=== PATIENT | male | born 1955 | race Caucasian/White ===

== ENCOUNTER 2016-04-05 17:17 | Emergency (ER) | payer OTHER ==
--- NOTE | 2016-04-05 20:52 | DIAGNOSTIC IMAGING REPORT ---
PROCEDURE: XR LUMBAR SPINE 2 OR 3 VIEWS INDICATION: TRAUMA/INJURY, initial encounter TECHNIQUE: Three views. COMPARISON: None. FINDINGS: Minor dextroconvex curvature of the spine. Moderate L1 compression fracture which appears chronic. Grade 1 L4-5 anterolisthesis., L4-5 end L5-S1 disc space narrowing. Soft tissues are unremarkable. IMPRESSION: 1. Moderate L1 compression fracture which appears chronic 2. Grade 1 L4-5 anterolisthesis 3. Mild degenerative changes with mild L3-4, L4-5 and L5-S1 disc space narrowing
--- NOTE | 2016-04-05 22:10 | ED CLINICAL REPORT ---
Clinical Report - Physicians/Mid Levels [facility] [address] [place] [address] 04/05/2016 17:17 Patient: CARLOS PRAJAPATI Time Seen: 19:57; initial patient contact, initial documentation, patient care assumed. Arrived- By private vehicle. Historian- patient. HISTORY OF PRESENT ILLNESS Chief Complaint: BACK PAIN and CHRONIC BACK PAIN. It is described as being severe. It is described as being in the area of the left mid lumbar spine, mid lumbar spine, left lower lumbar spine, lower lumbar spine and right mid lumbar spine. It is described as being in the area of the right lower lumbar spine. The quality is noted to be "pain" and similar to prior episodes. No radiation. Modifying factors- worsened by rotation of the body to the right or left, bending over or lifting. Relieved by taking prescription medications. Onset was just prior to arrival and it is still present. No bladder dysfunction, bowel dysfunction, sensory loss or motor loss. Additional history - missed today's appt for pain management and now almost out of pain meds, states he wants pain meds for his back. Patient notes the possibility of an injury but denies injury to the head. Mechanism of injury- he fell while walking. (slipped and fell). No other injury. Similar symptoms previously: Chronically, milder. Recent medical care: The patient was seen recently at another facility in the emergency department. ( went to [facility] on 03/31 for same thing, fall, L knee pain and back pain, did xrays of knee, but none of back). REVIEW OF SYSTEMS No fever, difficulty with urination, urinary frequency, hematuria or difficulty breathing. No chest pain, abdominal pain, vomiting or diarrhea. All systems otherwise negative, except as recorded above. PAST HISTORY See nurses notes. PROBLEMS: Substance Abuse. Lower Extremity Pain. Infections. Diabetes Mellitus. Contusion. MRSA Infection. Ruptured Achilles. Diarrhea. Thrombocytopenia. --19:54 Eliceo Hudson R.N. SOCIAL HISTORY Never smoker. No alcohol use or drug use. No recent travel. Is a local resident. FAMILY HISTORY Negative. ADDITIONAL NOTES The nursing notes have been reviewed with agreement regarding the chief complaint, HPI, ROS, PMH and patient medications and allergies. PHYSICAL EXAM Vital Signs: 04/05/2016 17:31 BP: 129/88. HR: 81. RR: 18. O2 saturation: 98%. Temp: 98.6 F. Pain level now: 01/06. Have been reviewed as normal and appear to be correct. Appearance: Alert. No acute distress. Neck: Normal inspection. Neck nontender. Painless ROM. CVS: Heart sounds normal. Pulses normal. Respiratory: No respiratory distress. Breath sounds normal. Abdomen: No visible injury. Soft and nontender. Back: Abnormal inspection. Back tenderness present. Vertebral point tenderness over the mid and lower lumbar spine. Soft tissue tenderness in the left mid and lower and mid and lower central lumbar area. No painless ROM. Mildly limited ROM in the back- in the lumbar spine: decreased flexion, extension, right lateral bending, left lateral bending and rotation to the right and left. No muscle spasm in the back or CVA tenderness. Skin: Skin warm and dry. Normal skin color. No rash. Normal skin turgor. Extremities: Extremities exhibit normal ROM. Extremities nontender. Neuro: Oriented X 3. Mood/affect normal. No motor deficit. No sensory deficit. LABS, X-RAYS, AND EKG X-Rays: LS spine series. LS-Spine X-rays: (IMPRESSION: 1. Moderate L1 compression fracture which appears chronic 2. Grade 1 L4-5 anterolisthesis 3. Mild degenerative changes with mild L3-4, L4-5 and L5-S1 disc space narrowing Electronically Final signed by:Osbaldo Crum MD 04/05/2016 8:52:16 PM). The X-rays were interpreted by the radiologist and contemporaneously by me. PROGRESS AND PROCEDURES Course of Care: 2109. nurse went to give Toradol, and now pt stating he can't take it 21:24 04/05/16. pt has [facility] for pain management, frequent er visits, #30, see report for full details 2144. xrays results and tx plan discussed, pt insisting I give him pain meds, and stated that when he went to er at other facility they have him oxycodone, and why couldn't he have that here, concerns discussed about chronic pain conditions and narcs, pt then telling me pain meds for his knee don't count towards his back pt aware that he will not get any narcs or controlled substances, states takes motrin without issues and will take the toradol, agreed to give benadryl with it, states he had it approx x18 years ago, and it made him itch, no rash. Patient/family counseled. 22:09. Differential Diagnosis: I considered Musculo-skeletal strain, contusion, retroperitoneal hematoma, disk protrusion, vertebral fracture, facet syndrome, sacroiliac joint strain, sciatica, osteoarthritis, lumbar spondylosis, spinal stenosis, ankylosing spondylitis and sacroiliac joint inflammation as a possible cause of back pain in this patient. This is a partial list of diagnoses considered. (substance abuse, muscle strain). Above considerations are based on history, physical exam and X-Ray data. Differential diagnosis was discussed with patient. Disposition: Discharged home in good and improved condition (22:10). Condition: good and stable. CLINICAL IMPRESSION Chronic nontraumatic lumbar back pain associated with degenerative disc disease. INSTRUCTIONS Warnings: GENERAL WARNINGS: Return or contact your physician immediately if your condition worsens or changes unexpectedly, if not improving as expected, or if other problems arise. SPECIFICALLY, return if you develop numbness or incontinence of urine (loss of bladder control). Prescription Medications: Naproxen 500 mg tablets: take 1 orally every 12 hours as needed for pain. Dispense twenty (20). No refills. Medrol Dosepak: take according to package directions. Dispense one (1) dosepak. No refills. Substitution is permissible. Follow-up: Follow up with your doctor in about three days even if well. Call for an appointment. Summary of care provided to patient. Understanding of the discharge instructions verbalized by patient. (Electronically signed by Tahmina Tan A.R.N.P. 04/06/2016 0:11)
--- NOTE | 2016-04-05 22:11 | ED NURSING NOTES ---
Clinical Report - Nurses [facility] [address] [place] [address] 04/05/2016 17:17 Patient: CARLOS PRAJAPATI TRIAGE Triage time 17:31. Chief Complaint: BACK PAIN and (low back area, this is a re-injury). Alert. --17:34 Piedad Dixon R.N. 17:31 04/05/16. BP: 129/88. HR: 81. RR: 18. O2 saturation: 98%. Temp: 98.6 F. Pain level now: 01/06. --17:34 Piedad Dixon R.N. Acuity: LEVEL 3. Chief Complaint: BACK PAIN. ( Pt missed his pain clinic for his pain meds.). --19:54 Eliceo Hudson R.N. Weight: 97.5 kg stated. Height/Length: 70 inches Per Patient. BMI: 30.8. --17:33 Piedad Dixon R.N. Medications MetFORMIN HCl Oral 850 mg, 2x a day. OxyCODONE HCl Oral 10 mg, every 4 hours . Sovaldi Oral (Tablet 400 mg) 1 tablet, daily . --19:53 Eliceo Hudson R.N. Medication/allergy information source: the patient. --19:54 Eliceo Hudson R.N. Allergies Penicillin.(hives) Toradol.(itching) --19:53 Eliceo Hudson R.N. History Arrived by private vehicle, and accompanied by (s/o). Primary physician (Dr. Drew). Historian not patient. This started today. History of recent trauma- (knee went out, pt fell down and now has back pain (again)). --17:34 Piedad Dixon R.N. ( Pt came in with back and right knee pain. The back has been hurting for over 3 months. Pt fell on thursday on ice. Pt ambulates with a cane. The back pain is radiating into the neck.). He has had trouble walking (due to the pain). Treatment [employer] SUPERINTENDENT: Took Tylenol. PAST MEDICAL HX: ( Pt has a hx of sub abuse but denies any in triage.). SOCIAL HX: Never smoker. No alcohol use or drug use. --19:54 Eliceo Hudson R.N. PROBLEMS: Substance Abuse. Lower Extremity Pain. Infections. Diabetes Mellitus. Contusion. MRSA Infection. Ruptured Achilles. Diarrhea. Thrombocytopenia. --19:54 Eliceo Hudson R.N. Interventions ID band on patient. To treatment room. --19:54 Eliceo Hudson R.N. PHYSICAL ASSESSMENT GENERAL / NEURO / PSYCH: Alert. Oriented X 4. Appears in no acute distress. RESPIRATORY: Respirations not labored. Chest nontender. Breath sounds within normal limits. CVS: Normal heart rate and rhythm. Capillary refill less than 2 seconds. GI / : Abdomen soft and nontender. Bowel sounds within normal limits. EXTREMITIES: Limited ROM present in the right knee and left knee. Sensation intact in extremities. BACK: ( Limited rom in the right knee due to pain. walks with a cane.). Normal inspection of the neck and back. Limited ROM of the neck. No neck or back tenderness. --19:55 Eliceo Hudson R.N. NURSING PROGRESS NOTES 19:51 04/05/16. BP: 131/82. HR: 72. RR: 18. O2 saturation: 100%. Pain level now 10/10. --19:52 Eliceo Hudson R.N. The plan of care for this patient has been created. Head of bed elevated. Two patient identifiers checked. Call light placed in reach. Side rails up x 1. Bed placed in lowest position. Brakes of chair on. ( Pain is 12/10 with the back pain. Pt is not in obvious signs of distress, while at rest.). --19:52 Eliceo Hudson R.N. Patient transported to radiology. (20:32). --20:32 Eliceo Hudson R.N. Patient returned from radiology. (20:37). --20:37 Eliceo Hudson R.N. 22:04/05/2016 Toradol (Ketorolac Tromethamine) IM 60 mg given. Given in the right gluteus lynda. Allergies verified and confirmed 5 rights. --22:10 Eliceo Hudson R.N. 22:10 04/05/2016 Benadryl (DiphenhydrAMINE HCl) IM 50 mg given. Given in the right gluteus lynda. Allergies verified, confirmed 5 rights and sedative warning given to the patient. --22:10 Eliceo Hudson R.N. 22:10 04/05/16. BP: 125/78. HR: 68. RR: 15. O2 saturation: 100%. Pain level now 01/06. --22:11 Eliceo Hudson R.N. DISPOSITION / DISCHARGE Departure time: 2244. Condition at departure: unchanged. No learning barriers present. Discharge instructions provided and reviewed with the patient. Patient verbalized understanding. Written instructions provided in Portuguese. The patient was discharged by the physician. He was discharged home. He left the Emergency Department ambulatory, via private vehicle and (cane). Patient driving. --22:44 Eliceo Hudson R.N. 22:41 04/05/16. BP: 129/75. HR: 72. RR: 14. O2 saturation: 100%. Pain level now 01/06. --22:44 Eliceo Hudson R.N. Locked/Released at 04/05/2016 22:45 by Eliceo Hudson R.N.
--- NOTE | 2016-04-05 22:11 | ED ORDER SUMMARY ---
..... Patient: CARLOS PRAJAPATI OrderSheet [facility] VisitID: [id number] [address] [place] [address] 61y, M Registration Date/Time: 04/05/2016 ORDER SHEET Weight: 97.5 kg (stated) Allergies: Penicillin, Toradol GENERAL ORDERS: Lumbar Spine 2 or 3V Urgent (20:15 04/05/2016 HBivens A.R.N.P.) (20:32 TLewis R.N.) MEDICATION ORDERS: Toradol IM 60 mg (NOW) (22:07 04/05/2016 HBivens A.R.N.P.) (22:10 TLewis R.N.) Benadryl IM 50 mg (NOW) (22:04/05/2016 HBivens A.R.N.P.) (22:10 TLewis R.N.) IV FLUIDS: ORDER SHEET NOTES: [Electronically signed by Eliceo Hudson R.N. (22:45 04/05/2016)] [Electronically signed by Tahmina TanR.N.P. (00:11 04/06/2016)] [Electronically locked/signed by Eliceo Hudson R.N. (22:45 04/05/2016)]
--- NOTE | 2016-04-05 22:11 | ED ORDER SUMMARY ---
..... Patient: CARLOS PRAJAPATI OrderSheet [facility] VisitID: [id number] [address] [place] [address] 61y, M Registration Date/Time: 04/05/2016 ORDER SHEET Weight: 97.5 kg (stated) Allergies: Penicillin, Toradol GENERAL ORDERS: Lumbar Spine 2 or 3V Urgent (20:15 04/05/2016 HBivens A.R.N.P.) (20:32 TLewis R.N.) MEDICATION ORDERS: Toradol IM 60 mg (NOW) (22:07 04/05/2016 HBivens A.R.N.P.) (22:10 TLewis R.N.) Benadryl IM 50 mg (NOW) (22:04/05/2016 HBivens A.R.N.P.) (22:10 TLewis R.N.) IV FLUIDS: ORDER SHEET NOTES: [Electronically signed by Eliceo Hudson R.N. (22:45 04/05/2016)] [Electronically signed by Tahmina TanR.N.P. (00:11 04/06/2016)] [Electronically locked/signed by Eliceo Hudson R.N. (22:45 04/05/2016)]
--- NOTE | 2016-04-06 00:11 | ED MAR SUMMARY ---
..... Medication Administration Record [facility] [address] [place] [address] Patient: CARLOS PRAJAPATI Visit ID: [id number] 61y, M Weight: 97.5 kg Height/Length: 70 in BMI: 30.8 ALLERGIES: Penicillin, Toradol Given 22:04/05/2016 Eliceo Hudson R.N. Medication Administered: TORADOL [IM] (KETOROLAC TROMETHAMINE), Dose: 60 mg IM. Medication Ordered: Toradol IM 60 mg (NOW). Given 22:04/05/2016 Eliceo Hudson R.N. Medication Administered: BENADRYL [IM] (DIPHENHYDRAMINE HCL), Dose: 50 mg IM. Medication Ordered: Benadryl IM 50 mg (NOW).
--- NOTE | 2016-04-06 00:11 | ED DISCHARGE INSTRUCTIONS ---
Patient: CARLOS PRAJAPATI General Instructions [facility] VisitID: [id number] [place] [address] 61y, M Registration Date/Time: 04/05/2016 Chronic nontraumatic lumbar back pain associated with degenerative disc disease. INSTRUCTIONS Warnings: GENERAL WARNINGS: Return or contact your physician immediately if your condition worsens or changes unexpectedly, if not improving as expected, or if other problems arise. SPECIFICALLY, return if you develop numbness or incontinence of urine (loss of bladder control). Prescription Medications: Naproxen 500 mg tablets: take 1 orally every 12 hours as needed for pain. Dispense twenty (20). No refills. Medrol Dosepak: take according to package directions. Dispense one (1) dosepak. No refills. Substitution is permissible. Follow-up: Follow up with your doctor in about three days even if well. Call for an appointment. Summary of care provided to patient. Understanding of the discharge instructions verbalized by patient. ADDITIONAL INFORMATION Back Pain [Acute Or Chronic] Back pain is usually caused by an injury to the muscles or ligaments of the spine. Sometimes the disks that separate each bone in the spine may bulge and cause pain by pressing on a nearby nerve. Back pain may also appear after a sudden twisting/bending force (such as in a car accident), after a simple awkward movement, or lifting something heavy with poor body positioning. In either case, muscle spasm is often present and adds to the pain. Acute back pain usually gets better in one to two weeks. Back pain related to disk disease, arthritis in the spinal joints or spinal stenosis (narrowing of the spinal canal) can become chronic and last for months or years. Unless you had a physical injury (for example, a car accident or fall) X-rays are usually not ordered for the initial evaluation of back pain. If pain continues and does not respond to medical treatment, x-rays and other tests may be performed at a later time. Home Care: You may need to stay in bed the first few days. But, as soon as possible, begin sitting or walking to avoid problems with prolonged bed rest (muscle weakness, worsening back stiffness and pain, blood clots in the legs). When in bed, try to find a position of comfort. A firm mattress is best. Try lying flat on your back with pillows under your knees. You can also try lying on your side with your knees bent up towards your chest and a pillow between your knees. Avoid prolonged sitting. This puts more stress on the lower back than standing or walking. During the first two days after injury, apply an ICE PACK to the painful area for 20 minutes every 2-4 hours. This will reduce swelling and pain. HEAT (hot shower, hot bath or heating pad) works well for muscle spasm. You can start with ice, then switch to heat after two days. Some patients feel best alternating ice and heat treatments. Use the one method that feels the best to you. You may use acetaminophen (Tylenol) or ibuprofen (Motrin, Advil) to control pain, unless another pain medicine was prescribed. [NOTE: If you have chronic liver or kidney disease or ever had a stomach ulcer or GI bleeding, talk with your doctor before using these medicines.] Be aware of safe lifting methods and do not lift anything over 15 pounds until all the pain is gone. Follow Up with your doctor or this facility if your symptoms do not start to improve after one week. Physical therapy may be needed. [NOTE: If X-rays were taken, they will be reviewed by a radiologist. You will be notified of any new findings that may affect your care.] Get Prompt Medical Attention if any of the following occur: Pain becomes worse or spreads to your legs Weakness or numbness in one or both legs Loss of bowel or bladder control Numbness in the groin or genital area Degenerative Disk Disease Spinal disks are gel-filled cushions between the bones of the spine (vertebrae). The disks act like shock absorbers. Over time, the disks may break down. This disorder is called degenerative disk disease (DDD). DDD can affect the neck or back. It is one of the most common causes of low back pain. It is the leading cause of disability in people under age 45 in the [place]. The pain usually remains localized to the lower back or neck. Muscle spasm is often present and adds to the pain. Disk degeneration is a natural part of aging, although it does not cause pain in most persons. It may also occur as a result of repeated minor injuries due to daily activities, sports, or accidents. It may lead to osteoarthritis of the spine. Back pain related to disk disease may come and go or become chronic and last for months or years. If the disk bulges or ruptures (also called slipped disk or herniated disk), it can put pressure on a nearby spinal nerve and cause neck or back pain that spreads down one arm or leg. X-rays or MRI (magnetic resonance imaging) scan may aid in the diagnosis. For acute pain, treatment consists of anti-inflammatory drugs, muscle relaxants, rest, ice, or heat. Narcotic pain medicines may be needed for short-term treatment of sudden worsening of pain. Due to their addictive potential, narcotics are not advised for long-term pain management. Other types of medicines are preferred. Surgery is usually not used to treat this condition unless there is a complication (such as nerve root compression). Home Care: FOR NECK PAIN: Use a comfortable pillow that supports the head and keeps the spine in a neutral position. The head should not be tilted forward or backward. FOR BACK PAIN: Avoid prolonged sitting. This puts more stress on the lower back than standing or walking. Establishing a regular exercise program to strengthen the supporting muscles of the spine will make it easier to live with DDD. During the first2 days after a flare-up of your pain, apply anice pack to the painful area for 20 minutes every 2-4 hours. This will reduce swelling and pain.Heat (hot shower, hot bath, or heating pad) works well for muscle spasm. You can start with ice, then switch to heat after2 days. Some patients feel best alternating ice and heat treatments. Use the method that feelsbest to you. You may use acetaminophen (Tylenol) or ibuprofen (Motrin, Advil) to control pain, unless another pain medicine was prescribed. [NOTE: If you have chronic liver or kidney disease or ever had a stomach ulcer or GI bleeding, talk with your doctor before using these medicines.] Follow Up with your physician, or as directed by our staff. [NOTE: If x-rays, a CT scan or an MRI scan were taken, they will be reviewed by a radiologist. You will be notified of any new findings that may affect your care.] Return Promptly or contact your doctor if any of the following occur: Increasing back pain New weakness, numbness, or pain in one or both arms or legs Foot drop (foot drags when you walk) Loss of bowel or bladder control Numbness or tingling in the buttock or groin area Unexplained fever over 100.4F (38.0C) Naproxen Sodium Oral tablet What is this medicine? NAPROXEN (na PROX en) is a non-steroidal anti-inflammatory drug (NSAID). It is used to reduce swelling and to treat pain. This medicine may be used for dental pain, headache, or painful monthly periods. It is also used for painful joint and muscular problems such as arthritis, tendinitis, bursitis, and gout. How should I use this medicine? Take this medicine by mouth with a glass of water. Follow the directions on the prescription label. Take it with food if your stomach gets upset. Try to not lie down for at least 10 minutes after you take it. Take your medicine at regular intervals. Do not take your medicine more often than directed. Long-term, continuous use may increase the risk of heart attack or stroke. A special MedGuide will be given to you by the pharmacist with each prescription and refill. Be sure to read this information carefully each time. Talk to your backend tester regarding the use of this medicine in children. Special care may be needed. What side effects may I notice from receiving this medicine? Side effects that you should report to your doctor or health attending ambulatory care as soon as possible: black or bloody stools, blood in the urine or vomit blurred vision chest pain difficulty breathing or wheezing nausea or vomiting severe stomach pain skin rash, skin redness, blistering or peeling skin, hives, or itching slurred speech or weakness on one side of the body swelling of eyelids, throat, lips unexplained weight gain or swelling unusually weak or tired yellowing of eyes or skin Side effects that usually do not require medical attention (report to your doctor or health attending ambulatory care if they continue or are bothersome): constipation headache heartburn What may interact with this medicine? alcohol aspirin cidofovir diuretics lithium methotrexate other drugs for inflammation like ketorolac or prednisone pemetrexed probenecid warfarin What if I miss a dose? If you miss a dose, take it as soon as you can. If it is almost time for your next dose, take only that dose. Do not take double or extra doses. Where should I keep my medicine? Keep out of the reach of children. Store at room temperature between 15 and 30 degrees C (59 and 86 degrees F). Keep container tightly closed. Throw away any unused medicine after the expiration date. What should I tell my health care provider before I take this medicine? They need to know if you have any of these conditions: asthma cigarette smoker drink more than 3 alcohol containing drinks a day heart disease or circulation problems such as heart failure or leg edema (fluid retention) high blood pressure kidney disease liver disease stomach bleeding or ulcers an unusual or allergic reaction to naproxen, aspirin, other NSAIDs, other medicines, foods, dyes, or preservatives or trying to get breast-feeding What should I watch for while using this medicine? Tell your doctor or health attending ambulatory care if your pain does not get better. Talk to your doctor before taking another medicine for pain. Do not treat yourself. This medicine does not prevent heart attack or stroke. In fact, this medicine may increase the chance of a heart attack or stroke. The chance may increase with longer use of this medicine and in people who have heart disease. If you take aspirin to prevent heart attack or stroke, talk with your doctor or health attending ambulatory care. Do not take other medicines that contain aspirin, ibuprofen, or naproxen with this medicine. Side effects such as stomach upset, nausea, or ulcers may be more likely to occur. Many medicines available without a prescription should not be taken with this medicine. This medicine can cause ulcers and bleeding in the stomach and intestines at any time during treatment. Do not smoke cigarettes or drink alcohol. These increase irritation to your stomach and can make it more susceptible to damage from this medicine. Ulcers and bleeding can happen without warning symptoms and can cause . You may get drowsy or dizzy. Do not drive, use machinery, or do anything that needs mental alertness until you know how this medicine affects you. Do not stand or sit up quickly, especially if you are an older patient. This reduces the risk of dizzy or fainting spells. This medicine can cause you to bleed more easily. Try to avoid damage to your teeth and gums when you brush or floss your teeth. Methylprednisolone Oral tablet What is this medicine? METHYLPREDNISOLONE (meth ill pred NISS oh lone) is a corticosteroid. It is commonly used to treat inflammation of the skin, joints, lungs, and other organs. Common conditions treated include asthma, allergies, and arthritis. It is also used for other conditions, such as blood disorders and diseases of the adrenal glands. How should I use this medicine? Take this medicine by mouth with a drink of water. Follow the directions on the prescription label. Take it with food or milk to avoid stomach upset. If you are taking this medicine once a day, take it in the morning. Do not take more medicine than you are told to take. Do not suddenly stop taking your medicine because you may develop a severe reaction. Your doctor will tell you how much medicine to take. If your doctor wants you to stop the medicine, the dose may be slowly lowered over time to avoid any side effects. Talk to your backend tester regarding the use of this medicine in children. Special care may be needed. What side effects may I notice from receiving this medicine? Side effects that you should report to your doctor or health attending ambulatory care as soon as possible: allergic reactions like skin rash, itching or hives, swelling of the face, lips, or tongue eye pain, decreased or blurred vision, or bulging eyes fever, sore throat, sneezing, cough, or other signs of infection, wounds that will not heal increased thirst mental depression, mood swings, mistaken feelings of self importance or of being mistreated pain in hips, back, ribs, arms, shoulders, or legs swelling of the ankles, feet, hands trouble passing urine or change in the amount of urine Side effects that usually do not require medical attention (report to your doctor or health attending ambulatory care if they continue or are bothersome): confusion, excitement, restlessness headache nausea, vomiting skin problems, acne, thin and shiny skin weight gain What may interact with this medicine? Do not take this medicine with any of the following medications: mifepristone This medicine may also interact with the following medications: tacrolimus vaccines warfarin What if I miss a dose? If you miss a dose, take it as soon as you can. If it is almost time for your next dose, talk to your doctor or health attending ambulatory care. You may need to miss a dose or take an extra dose. Do not take double or extra doses without advice. Where should I keep my medicine? Keep out of the reach of children. Store at room temperature between 20 and 25 degrees C (68 and 77 degrees F). Throw away any unused medicine after the expiration date. What should I tell my health care provider before I take this medicine? They need to know if you have any of these conditions: Milton's syndrome diabetes glaucoma heart problems or disease high blood pressure infection such as herpes, measles, tuberculosis, or chickenpox kidney disease liver disease mental problems myasthenia gravis osteoporosis seizures stomach ulcer or intestine disease including colitis and diverticulitis thyroid problem an unusual or allergic reaction to lactose, methylprednisolone, other medicines, foods, dyes, or preservatives or trying to get breast-feeding What should I watch for while using this medicine? Visit your doctor or health attending ambulatory care for regular checks on your progress. If you are taking this medicine for a long time, carry an identification card with your name and address, the type and dose of your medicine, and your doctor's name and address. The medicine may increase your risk of getting an infection. Stay away from people who are sick. Tell your doctor or health attending ambulatory care if you are around anyone with measles or chickenpox. If you are going to have surgery, tell your doctor or health attending ambulatory care that you have taken this medicine within the last twelve months. Ask your doctor or health attending ambulatory care about your diet. You may need to lower the amount of salt you eat. The medicine can increase your blood sugar. If you are a diabetic check with your doctor if you need help adjusting the dose of your diabetic medicine. You have been given the following additional information: Back Pain (Acute Or Chronic) Degenerative Disk Disease Naproxen Sodium Oral tablet Methylprednisolone Oral tablet (Electronically signed by Tahmina Tan A.R.N.P. 04/06/2016 0:11)
--- NOTE | 2016-04-06 00:11 | ED MAR SUMMARY ---
..... Medication Administration Record [facility] [address] [place] [address] Patient: CARLOS PRAJAPATI Visit ID: [id number] 61y, M Weight: 97.5 kg Height/Length: 70 in BMI: 30.8 ALLERGIES: Penicillin, Toradol Given 22:04/05/2016 Eliceo Hudson R.N. Medication Administered: TORADOL [IM] (KETOROLAC TROMETHAMINE), Dose: 60 mg IM. Medication Ordered: Toradol IM 60 mg (NOW). Given 22:04/05/2016 Eliceo Hudson R.N. Medication Administered: BENADRYL [IM] (DIPHENHYDRAMINE HCL), Dose: 50 mg IM. Medication Ordered: Benadryl IM 50 mg (NOW).
--- NOTE | 2016-04-06 00:12 | ED MED RECONCILIATION SUMMARY ---
Patient: CARLOS PRAJAPATI Medication Reconciliation Report [facility] VisitID: [id number] [address] [place] [address] 61y, M Registration Date/Time: 04/05/2016 Weight: 97.5 kg Height/Length: 70 in. BMI: 30.8 ALLERGIES: Penicillin, Toradol The patient's Home Medications are listed below: THE FOLLOWING MEDICATIONS NEED TO BE RECONCILED: MetFORMIN HCl Oral 850 mg, 2x a day OxyCODONE HCl Oral 10 mg, every 4 hours Sovaldi Oral (400 mg) 1 tablet, daily The source(s) of the original Home Medication information: patient The following Medications were given to the patient in the Emergency Department: Toradol [IM] IM 60 mg, administered: 04/05/2016 10:10:00 PM Benadryl [IM] IM 50 mg, administered: 04/05/2016 10:10:00 PM The following Medications were prescribed to the patient: Naproxen 500 mg tablets: take 1 orally every 12 hours as needed for pain. Dispense twenty (20). No refills. -- Tahmina Tan, Carlene.R.N.P. Medrol Dosepak: take according to package directions. Dispense one (1) dosepak. No refills. Substitution is permissible. -- Thamina Tan A.R.N.P.
--- NOTE | 2016-04-06 00:12 | ED MED RECONCILIATION SUMMARY ---
Patient: CARLOS PRAJAPATI Medication Reconciliation Report [facility] VisitID: [id number] [address] [place] [address] 61y, M Registration Date/Time: 04/05/2016 Weight: 97.5 kg Height/Length: 70 in. BMI: 30.8 ALLERGIES: Penicillin, Toradol The patient's Home Medications are listed below: THE FOLLOWING MEDICATIONS NEED TO BE RECONCILED: MetFORMIN HCl Oral 850 mg, 2x a day OxyCODONE HCl Oral 10 mg, every 4 hours Sovaldi Oral (400 mg) 1 tablet, daily The source(s) of the original Home Medication information: patient The following Medications were given to the patient in the Emergency Department: Toradol [IM] IM 60 mg, administered: 04/05/2016 10:10:00 PM Benadryl [IM] IM 50 mg, administered: 04/05/2016 10:10:00 PM The following Medications were prescribed to the patient: Naproxen 500 mg tablets: take 1 orally every 12 hours as needed for pain. Dispense twenty (20). No refills. -- Tahmina Tan, Carlene.R.N.P. Medrol Dosepak: take according to package directions. Dispense one (1) dosepak. No refills. Substitution is permissible. -- Tahmina Tan A.R.N.P.
== END 2016-04-05 22:49 | disposition home or self-care (01) ==
LOC: ED SRH 17:17
DX: M51.36 Other intervertebral disc degeneration, lumbar region (principal); Z79.899 Other long term (current) drug therapy; M54.5 Low back pain; G89.29 Other chronic pain; W01.0XXA Fall on same level from slipping, tripping and stumbling without subsequent striking against object, initial encounter; Y93.01 Activity, walking, marching and hiking; Y92.9 Unspecified place or not applicable; Y99.8 Other external cause status; E11.9 Type 2 diabetes mellitus without complications; Z79.84 Long term (current) use of oral hypoglycemic drugs

== ENCOUNTER 2016-05-08 10:53 | Emergency (ER) | payer OTHER ==
--- NOTE | 2016-05-08 13:25 | DIAGNOSTIC IMAGING REPORT ---
PROCEDURE: XR KNEE 4 VIEWS - LEFT INDICATION: PAIN TECHNIQUE: Five views. COMPARISON: None available FINDINGS: Status post total knee replacement. Osseous structures and joint spaces are normal. No fracture. No evidence of loosening. IMPRESSION: 1. Normal right total knee.
--- NOTE | 2016-05-08 13:26 | DIAGNOSTIC IMAGING REPORT ---
PROCEDURE: XR TIBIA AND FIBULA - LEFT INDICATION: PAIN TECHNIQUE: AP and lateral views. COMPARISON: None. FINDINGS: Osseous structures are normal. Total knee prosthesis in good position. IMPRESSION: 1. Normal left tibia and fibula.
--- NOTE | 2016-05-08 13:48 | ED NURSING NOTES ---
Clinical Report - Nurses [address] [place] [address] 05/08/2016 10:54 [id number] Triage time 11:10 May 08 2016. Acuity: LEVEL 4. Chief Complaint: LEFT LOWER EXTREMITY PAIN. Alert. No acute distress. ERIK COMA SCORE: Erik Coma Scale: 15- eyes open spontaneously (4); best verbal response- oriented x 4 (5); best motor response- obeys commands (6). --11:16 Izabel Rosenthal R.N. 11:10 05/08/16. BP: 129/87. HR: 96. RR: 18. O2 saturation: 98%. Temp: 98.0 F. Pain level now 8/10. --11:16 Izabel Rosenthal R.N. Weight: 97.5 kg stated. Height/Length: 70 inches Per Patient. BMI: 30.8. --11:10 Izabel Rosenthal R.N. Medications MetFORMIN HCl Oral 850 mg, 2x a day. --11:13 Izabel Rosenthal R.N. Doxycycline Monohydrate Oral (for a MRSA infection). --11:13 Izabel Rosenthal R.N. Medication/allergy information source: the patient. --11:16 Izabel Rosenthal R.N. Allergies Penicillin.(hives) Toradol.(itching) --11:13 Izabel Rosenthal R.N. History Arrived by private vehicle. Historian: patient. Accompanied by (by self). Primary physician (Kat Veronica). ( "Left Leg gave out" while walking to his car. Pt has a Left Knee Replacement from March 2015. Pt uses a cane, ambulated into the lobby.). No injury occurred. This occurred just prior to arrival. Treatment TANGIBLE PERSONAL PROPERTY APPRAISER: None. PAST MEDICAL HX: Immunizations: has received pneumonia vaccine; seasonal influenza. SOCIAL HX: Never smoker. No alcohol use or drug use. No infectious disease exposure. FALL RISK ASSESSMENT: Fall risk assessment completed. No fall risk identified. NUTRITIONAL RISK ASSESSMENT: The nutritional risk assessment revealed no deficiencies. FUNCTIONAL ASSESSMENT: Functional assessment: no impairments noted. LEARNING NEEDS ASSESSMENT: The learning needs assessment revealed no barriers. SKIN INTEGRITY ASSESSMENT: Skin integrity risk assessment completed. No skin integrity risk identified. --11:16 Izabel Rosenthal R.N. PROBLEMS: Back Pain. Substance Abuse. Lower Extremity Pain. Infections. Diabetes Mellitus. Contusion. MRSA Infection. Ruptured Achilles. Diarrhea. Thrombocytopenia. --11:14 Izabel Rosenthal R.N. Hepatitis. --11:16 Izabel Rosenthal R.N. ADDITIONAL SURGERIES: Knee Surgery. Left Knee Replacement. --11:14 Izabel Rosenthal R.N. Interventions ID band on patient. To waiting room. --11:16 Izabel Rosenthal R.N. PHYSICAL ASSESSMENT Ambulatory to room. GENERAL / NEURO / PSYCH: Oriented X 4. Alert. Appears in no acute distress. SKIN: Skin is warm and dry. --11:16 Izabel Rosenthal R.N. 11:36 05/08/16. Ambulatory to room. Patient gowned. GENERAL / NEURO / PSYCH: Oriented X 4. Alert. Appears in no acute distress. SKIN: Skin is warm and dry. --11:36 Shikha Sharma R.N. NURSING PROGRESS NOTES Patient ready for evaluation- chart flagged and ED physician notified. --11:16 Izabel Rosenthal R.N. 11:37 05/08/16. Cold pack applied. Patient gowned. Call light placed in reach. Side rails up x 1. Bed placed in lowest position. Brakes of bed on. --11:37 Shikha Sharma R.N. 11:39 refused ice pack. --11:39 Shikha Sharma R.N. 11:39 05/08/16. BP: 134/80. HR: 94. RR: 18. O2 saturation: 99% on room air. Pain level now: 01/06. --11:40 Shikha Sharma R.N. 12:30 05/08/2016 Morphine (Morphine Sulfate (PF)) IM 4 mg given. Given in the right ventral gluteus. --12:35 Shikha Sharma R.N. Patient transported to radiology by stretcher. --12:45 Shikha Sharma R.N. Patient returned from radiology by stretcher. --14:42 Shikha Sharma R.N. 12:30. The patient is resting quietly. Overall patient status is improved- he states feels better. GENERAL / NEURO / PSYCH: Alert. Oriented X 4. RESPIRATORY: No respiratory distress. SKIN: Skin is warm and dry. --14:42 Shikha Sharma R.N. 14:00. The patient is resting quietly. Overall patient status is the same- he states feels the same (pt asking the ERMD for "just a few [place]"). GENERAL / NEURO / PSYCH: Alert. Oriented X 4. RESPIRATORY: No respiratory distress. SKIN: Skin is warm and dry. --14:43 Shikha Sharma R.N. DISPOSITION / DISCHARGE Departure time: 1400. Condition at departure: improved and stable. Fall risk assessment completed. Risk factors identified include patient impairment of mobility. No learning barriers present. Discharge instructions provided and reviewed with the patient. Patient verbalized understanding. Written instructions provided in Martiniquais. The patient was discharged home and unaccompanied at time of discharge. He left the Emergency Department ambulatory and via private vehicle. --14:41 Shikha Sharma R.N. 14:00 05/08/16. BP: 129/82. HR: 88. RR: 18. O2 saturation: 100% on room air. Pain level now: 510. --14:41 Shikha Sharma R.N. Locked/Released at 05/08/2016 14:45 by Shikha Sharma R.N.
--- NOTE | 2016-05-08 13:48 | ED NURSING NOTES ---
Clinical Report - Nurses [address] [place] [address] 05/08/2016 10:54 [id number] Triage time 11:10 May 08 2016. Acuity: LEVEL 4. Chief Complaint: LEFT LOWER EXTREMITY PAIN. Alert. No acute distress. ERIK COMA SCORE: Erik Coma Scale: 15- eyes open spontaneously (4); best verbal response- oriented x 4 (5); best motor response- obeys commands (6). --11:16 Izabel Rosenthal R.N. 11:10 05/08/16. BP: 129/87. HR: 96. RR: 18. O2 saturation: 98%. Temp: 98.0 F. Pain level now 8/10. --11:16 Izabel Rosenthal R.N. Weight: 97.5 kg stated. Height/Length: 70 inches Per Patient. BMI: 30.8. --11:10 Izabel Rosenthal R.N. Medications MetFORMIN HCl Oral 850 mg, 2x a day. --11:13 Izabel Rosenthal R.N. Doxycycline Monohydrate Oral (for a MRSA infection). --11:13 Izabel Rosenthal R.N. Medication/allergy information source: the patient. --11:16 Izabel Rosenthal R.N. Allergies Penicillin.(hives) Toradol.(itching) --11:13 Izabel Rosenthal R.N. History Arrived by private vehicle. Historian: patient. Accompanied by (by self). Primary physician (Kat Veronica). ( "Left Leg gave out" while walking to his car. Pt has a Left Knee Replacement from March 2015. Pt uses a cane, ambulated into the lobby.). No injury occurred. This occurred just prior to arrival. Treatment MEASURER MACHINE: None. PAST MEDICAL HX: Immunizations: has received pneumonia vaccine; seasonal influenza. SOCIAL HX: Never smoker. No alcohol use or drug use. No infectious disease exposure. FALL RISK ASSESSMENT: Fall risk assessment completed. No fall risk identified. NUTRITIONAL RISK ASSESSMENT: The nutritional risk assessment revealed no deficiencies. FUNCTIONAL ASSESSMENT: Functional assessment: no impairments noted. LEARNING NEEDS ASSESSMENT: The learning needs assessment revealed no barriers. SKIN INTEGRITY ASSESSMENT: Skin integrity risk assessment completed. No skin integrity risk identified. --11:16 Izabel Rosenthal R.N. PROBLEMS: Back Pain. Substance Abuse. Lower Extremity Pain. Infections. Diabetes Mellitus. Contusion. MRSA Infection. Ruptured Achilles. Diarrhea. Thrombocytopenia. --11:14 Izabel Rosenthal R.N. Hepatitis. --11:16 Izabel Rosenthal R.N. ADDITIONAL SURGERIES: Knee Surgery. Left Knee Replacement. --11:14 Izabel Rosenthal R.N. Interventions ID band on patient. To waiting room. --11:16 Izabel Rosenthal R.N. PHYSICAL ASSESSMENT Ambulatory to room. GENERAL / NEURO / PSYCH: Oriented X 4. Alert. Appears in no acute distress. SKIN: Skin is warm and dry. --11:16 Izabel Rosenthal R.N. 11:36 05/08/16. Ambulatory to room. Patient gowned. GENERAL / NEURO / PSYCH: Oriented X 4. Alert. Appears in no acute distress. SKIN: Skin is warm and dry. --11:36 Shikha Sharma R.N. NURSING PROGRESS NOTES Patient ready for evaluation- chart flagged and ED physician notified. --11:16 Izabel Rosenthal R.N. 11:37 05/08/16. Cold pack applied. Patient gowned. Call light placed in reach. Side rails up x 1. Bed placed in lowest position. Brakes of bed on. --11:37 Shikha Sharma R.N. 11:39 refused ice pack. --11:39 Shikha Sharma R.N. 11:39 05/08/16. BP: 134/80. HR: 94. RR: 18. O2 saturation: 99% on room air. Pain level now: 01/06. --11:40 Shikha Sharma R.N. 12:30 05/08/2016 Morphine (Morphine Sulfate (PF)) IM 4 mg given. Given in the right ventral gluteus. --12:35 Shikha Sharma R.N. Patient transported to radiology by stretcher. --12:45 Shikha Sharma R.N. Patient returned from radiology by stretcher. --14:42 Shikha Sharma R.N. 12:30. The patient is resting quietly. Overall patient status is improved- he states feels better. GENERAL / NEURO / PSYCH: Alert. Oriented X 4. RESPIRATORY: No respiratory distress. SKIN: Skin is warm and dry. --14:42 Shikha Sharma R.N. 14:00. The patient is resting quietly. Overall patient status is the same- he states feels the same (pt asking the ERMD for "just a few [place]"). GENERAL / NEURO / PSYCH: Alert. Oriented X 4. RESPIRATORY: No respiratory distress. SKIN: Skin is warm and dry. --14:43 Shikha Sharma R.N. DISPOSITION / DISCHARGE Departure time: 1400. Condition at departure: improved and stable. Fall risk assessment completed. Risk factors identified include patient impairment of mobility. No learning barriers present. Discharge instructions provided and reviewed with the patient. Patient verbalized understanding. Written instructions provided in Micronesian. The patient was discharged home and unaccompanied at time of discharge. He left the Emergency Department ambulatory and via private vehicle. --14:41 Shikha Sharma R.N. 14:00 05/08/16. BP: 129/82. HR: 88. RR: 18. O2 saturation: 100% on room air. Pain level now: 510. --14:41 Shikha Sharma R.N. Locked/Released at 05/08/2016 14:45 by Shikha Sharma R.N.
--- NOTE | 2016-05-08 13:48 | ED ORDER SUMMARY ---
..... Patient: CARLOS PRAJAPATI OrderSheet [facility] VisitID: [id number] [place] [address] 61y, M Registration Date/Time: 05/08/2016 ORDER SHEET Weight: 97.5 kg (stated) Allergies: Penicillin, Toradol GENERAL ORDERS: Knee 4V Left Urgent (12:21 05/08/2016 Rachael Salgado) (Ack 13:04 TBergley) (13:14 TBergley) Tibia/Fibula Left Urgent (12:21 05/08/2016 Rachael Salgado) (Ack 13:04 TBergley) (13:14 TBergley) MEDICATION ORDERS: Morphine IM 4 mg (HIGH ALERT MEDICATION, NOW) (12:20 05/08/2016 Rachael Salgado) (Ack 12:22 Jumana R.N.) (12:35 Jumana R.N.) IV FLUIDS: ORDER SHEET NOTES: [Electronically signed by Shikha Sharma R.N. (14:45 05/08/2016)] [Electronically signed by Haim Colunga Dr. (08:54 05/09/2016)] [Electronically locked/signed by Shikha Sharma R.N. (14:45 05/08/2016)]
--- NOTE | 2016-05-08 13:48 | ED CLINICAL REPORT ---
Clinical Report - Physicians/Mid Levels [facility] [address] [place] [address] 05/08/2016 10:54 Patient: CARLOS PRAJAPATI Time Seen: 11:57; initial patient contact. Arrived- By private vehicle. Historian- patient. HISTORY OF PRESENT ILLNESS Chief Complaint: Injury to left leg. The injury happened several years ago. This was not caused by a direct blow. ( S/P infected L TKR and subsequent replacement. Cx pain since.). Patient is experiencing moderate pain. Patient denies injury to the head or neck. REVIEW OF SYSTEMS The patient complains of pain on weight bearing. He has had swelling. No tingling, weakness or numbness. All systems otherwise negative, except as recorded above. PAST HISTORY ( Back Pain. Substance Abuse. Lower Extremity Pain. Infections. Diabetes Mellitus. Contusion. MRSA Infection. Ruptured Achilles. Diarrhea. Thrombocytopenia. --11:14 Izabel Rosenthal R.N. Hepatitis. --11:16 Izabel Rosenthal R.N. ADDITIONAL SURGERIES: Knee Surgery. Left Knee Replacement.). Medications: Doxycycline Monohydrate Oral (for a MRSA infection). MetFORMIN HCl Oral 850 mg, 2x a day. Allergies: Penicillin.(hives) Toradol.(itching). SOCIAL HISTORY Never smoker. No alcohol use or drug use. ADDITIONAL NOTES The nursing notes have been reviewed with agreement regarding the chief complaint, PMH and patient medications and allergies. PHYSICAL EXAM Vital Signs: 05/08/2016 11:10 BP: 129/87. HR: 96. RR: 18. O2 saturation: 98%. Temp: 98.0 F. Have been reviewed as normal. Appearance: Alert. Oriented X3. No acute distress. Skin: Skin intact. Skin warm and dry. (Chronic venous stasis changes to both LE's). Extremities: Left knee: mild tenderness and swelling. Neurovascular intact distally. (Well healed surgical scar). No joint effusion. No erythema or deformity. No limitation in ROM. Lower extremity exam otherwise negative. Extremities otherwise negative. Neuro, Vascular and Tendons: Vascular status intact. Sensation intact. Motor intact. Gait: Limping gait. Neuro: Oriented X 3. No motor deficit. No sensory deficit. LABS, X-RAYS, AND EKG Lt Knee X-ray: (1. Normal right total knee.). Technique: good. The X-rays were interpreted by the radiologist and discussed with the radiologist. Prior films were not available for comparison. Interpretation time: 13:46. Lt Tib/Fib X-ray: (1. Normal left tibia and fibula.). Views: AP and lateral. Technique: good. The X-rays were interpreted by the radiologist and discussed with the radiologist. Prior films were not available for comparison. Interpretation time: 13:46. PROGRESS AND PROCEDURES Disposition: Discharged home in good and improved condition. Condition: good. CLINICAL IMPRESSION Chronic left knee pain. INSTRUCTIONS Your Current Medications: CONTINUE TAKING THE FOLLOWING MEDICATIONS: Doxycycline Monohydrate Oral : for a MRSA infection. MetFORMIN HCl Oral : 850 mg 2x a day. Follow-up: Follow up with your doctor in about four days. Call for an appointment. Screening today revealed the patient's blood pressure to be in the pre-hypertensive range. The patient should follow up with a primary care provider for blood pressure management. (Electronically signed by Haim Colunga Dr. 05/09/2016 8:54)
--- NOTE | 2016-05-08 13:48 | ED ORDER SUMMARY ---
..... Patient: CARLOS PRAJAPATI OrderSheet [facility] VisitID: [id number] [place] [address] 61y, M Registration Date/Time: 05/08/2016 ORDER SHEET Weight: 97.5 kg (stated) Allergies: Penicillin, Toradol GENERAL ORDERS: Knee 4V Left Urgent (12:21 05/08/2016 Rachael Salgado) (Ack 13:04 TBergley) (13:14 TBergley) Tibia/Fibula Left Urgent (12:21 05/08/2016 Rachael Salgado) (Ack 13:04 TBergley) (13:14 TBergley) MEDICATION ORDERS: Morphine IM 4 mg (HIGH ALERT MEDICATION, NOW) (12:20 05/08/2016 Rachael Salgado) (Ack 12:22 Jumana R.N.) (12:35 Jumana R.N.) IV FLUIDS: ORDER SHEET NOTES: [Electronically signed by Shikha Sharma R.N. (14:45 05/08/2016)] [Electronically signed by Haim Colunga Dr. (08:54 05/09/2016)] [Electronically locked/signed by Shikha Sharma R.N. (14:45 05/08/2016)]
--- NOTE | 2016-05-09 08:54 | ED DISCHARGE INSTRUCTIONS ---
Patient: CARLOS PRAJAPATI General Instructions [facility] VisitID: [id number] [place] [address] 61y, M Registration Date/Time: 05/08/2016 Chronic left knee pain. INSTRUCTIONS Your Current Medications: CONTINUE TAKING THE FOLLOWING MEDICATIONS: Doxycycline Monohydrate Oral : for a MRSA infection. MetFORMIN HCl Oral : 850 mg 2x a day. Follow-up: Follow up with your doctor in about four days. Call for an appointment. Screening today revealed the patient's blood pressure to be in the pre-hypertensive range. The patient should follow up with a primary care provider for blood pressure management. ADDITIONAL INFORMATION Osteoarthritis Osteoarthritis (also called Degenerative Joint Disease) is the most common form of arthritis in adults over 50. It is not the same as Rheumatoid Arthritis. The exact cause is not known but may be related to excess wear and tear on the joint over a long period of time. Prior injury to that joint, or repeated stress on a joint can also cause this type of arthritis. Osteoarthritis most often affects the hands, knees, spine and hips (in that order). The most common symptoms are joint stiffness, pain and swelling. Home Care: When a joint is more sore than usual, rest that joint for a day or two. Heat is very helpful. This can be provided by taking hot baths, applying a heating pad for up to 30 minutes at a time. Because symptoms are usually worse in the morning, many patients like to take a hot bath just after awakening to relax the muscle and soothe the joints. Exercise is the most important part of home treatment for osteoarthritis. This prevents the muscles and ligaments around the joint from becoming weak and helps maintain the full range of joint motion. This limits further damage to the joint. If you are overweight, this puts a lot of extra strain on weight-bearing joints of the lower back, hips, knees, feet and ankles. Losing weight will improve your arthritis symptoms in these joints. Talk to your doctor about a safe and effective weight loss program for yourself. Anti-inflammatory medicine such as ibuprofen (Advil, Motrin) or naproxen (Aleve) is often used to treat this condition. If this alone is not helping, your doctor may prescribe a stronger medicine. If narcotic pain medicines have been prescribed, they should be used in addition to anti-inflammatory drugs and only for severe pain. Follow Up with your doctor as advised by our staff. Get Prompt Medical Attention if any of the following occur: Redness or swelling of a painful joint Fever of 100.4F (38C) or higher, or as directed by your healthcare provider Worsening joint pain You have been given the following additional information: Osteoarthritis (Electronically signed by Haim Colunga Dr. 05/09/2016 8:54)
--- NOTE | 2016-05-09 08:54 | ED MAR SUMMARY ---
..... Medication Administration Record [facility] [address] [place] [address] Patient: CARLOS PRAJAPATI Visit ID: [id number] 61y, M Weight: 97.5 kg Height/Length: 70 in BMI: 30.8 ALLERGIES: Penicillin, Toradol Given 12:30 05/08/2016 Shikha Sharma R.N. Medication Administered: MORPHINE [IM] (MORPHINE SULFATE (PF)), Dose: 4 mg IM. Medication Ordered: Morphine IM 4 mg (HIGH ALERT MEDICATION, NOW).
--- NOTE | 2016-05-09 08:54 | ED MED RECONCILIATION SUMMARY ---
Patient: CARLOS PRAJAPATI Medication Reconciliation Report [facility] VisitID: [id number] [address] [place] [address] 61y, M Registration Date/Time: 05/08/2016 Weight: 97.5 kg Height/Length: 70 in. BMI: 30.8 ALLERGIES: Penicillin, Toradol The patient's Home Medications are listed below: CONTINUE TAKING THE FOLLOWING MEDICATIONS: Doxycycline Monohydrate Oral, for a MRSA infection MetFORMIN HCl Oral 850 mg, 2x a day The source(s) of the original Home Medication information: patient The following Medications were given to the patient in the Emergency Department: Morphine [IM] IM 4 mg, administered: 05/08/2016 12:30:00 PM The following Medications were prescribed to the patient: None.
--- NOTE | 2016-05-09 08:54 | ED MAR SUMMARY ---
..... Medication Administration Record [facility] [address] [place] [place] [address] Patient: CARLOS PRAJAPATI Visit ID: [id number] 61y, M Weight: 97.5 kg Height/Length: 70 in BMI: 30.8 ALLERGIES: Penicillin, Toradol Given 12:30 05/08/2016 Shikha Sharma R.N. Medication Administered: MORPHINE [IM] (MORPHINE SULFATE (PF)), Dose: 4 mg IM. Medication Ordered: Morphine IM 4 mg (HIGH ALERT MEDICATION, NOW).
--- NOTE | 2016-05-09 08:54 | ED MED RECONCILIATION SUMMARY ---
Patient: CARLOS PRAJAPATI Medication Reconciliation Report [facility] VisitID: [id number] [address] [place] [address] 61y, M Registration Date/Time: 05/08/2016 Weight: 97.5 kg Height/Length: 70 in. BMI: 30.8 ALLERGIES: Penicillin, Toradol The patient's Home Medications are listed below: CONTINUE TAKING THE FOLLOWING MEDICATIONS: Doxycycline Monohydrate Oral, for a MRSA infection MetFORMIN HCl Oral 850 mg, 2x a day The source(s) of the original Home Medication information: patient The following Medications were given to the patient in the Emergency Department: Morphine [IM] IM 4 mg, administered: 05/08/2016 12:30:00 PM The following Medications were prescribed to the patient: None.
== END 2016-05-08 14:00 | disposition home or self-care (01) ==
LOC: ED SRH 10:53
DX: G89.29 Other chronic pain (principal); M25.562 Pain in left knee; Z96.652 Presence of left artificial knee joint; E11.9 Type 2 diabetes mellitus without complications; Z79.84 Long term (current) use of oral hypoglycemic drugs; Z88.0 Allergy status to penicillin; Z88.5 Allergy status to narcotic agent; Z79.2 Long term (current) use of antibiotics